=== PATIENT | female | born 1965 | race Caucasian/White ===

== ENCOUNTER → 2016-09-12 | Outpatient (CLI) | payer BC ==
[~2016-09-12] MED LIST: CALCTAB5 PO; ERGO1CAP35 PO; PANT40TA PO; SYN112 PO
== END | disposition home or self-care (01) ==
LOC: C.PAPS 11:33
PROVIDERS: ATTEND Obstetrics & Gynecology
DX: Z12.4 Encounter for screening for malignant neoplasm of cervix (principal)

== ENCOUNTER → 2016-09-17 | Outpatient (CLI) | payer BC ==
[2016-09-17 10:00] LABS: CHOLESTEROL/HDL RATIO 5.8; THYROID STIMULATING HORMONE 0.942 uIu/ml (0.300-4.500)
== END | disposition home or self-care (01) ==
LOC: C.LAB1850 08:08
PROVIDERS: ATTEND Family Medicine
DX: E03.9 Hypothyroidism, unspecified (principal); E78.5 Hyperlipidemia, unspecified

== ENCOUNTER → 2017-09-01 | Outpatient (CLI) | payer BC | END | disposition home or self-care (01) | LOC: C.LAB 08:13 | PROVIDERS: ATTEND Family Medicine | DX: Z11.59 Encounter for screening for other viral diseases (principal); E03.9 Hypothyroidism, unspecified; E78.5 Hyperlipidemia, unspecified ==

== ENCOUNTER 2018-02-13 15:36 | Inpatient (IN) | payer BC, OTHER ==
[~2018-02-13] VITALS: Ht 160 cm; Wt 57.4 kg
[~2018-02-13 15:36] MED LIST changes: +CALC600T9 PO; -CALCTAB5 PO; +CHOL100010 PO; +CITA20TA4 PO; +CYAN1SUB12 PO; +DXM4 PO; -ERGO1CAP35 PO; +IMD2X PO; +LEVO75TA5 PO; +LVNIS60 SQ; +OMEG10007 PO; +ONDA8TAB62 SL; +POLY335025 PO; +PROB1TAB16 PO; +RANI300T2 PO; +RXC5 PO; +SENN-61 PO; -SYN112 PO; +THR10 PO; +VITA1TAB4 PO
[2018-02-13 17:56] LABS: BASO % 0.1 %; BASO ABS # 0.01 K/uL (0-0.2); EOS % 1.4 %; EOS ABS # 0.22 K/uL (0-0.5); HEMATOCRIT 32.9 % (37-47); HEMOGLOBIN 10.6 g/dL (12.0-16.0); IG# 0.05 K/uL (0.00-0.02); LYMPH % 10.1 %; LYMPH ABS # 1.56 K/uL (1.2-3.4); MEAN CELL VOLUME 86.4 fL (80-100); MEAN CORPUSCULAR HEMOGLOBIN 27.8 pg (25-34); MEAN CORPUSCULAR HGB CONC 32.2 g/dl (32-36); MEAN PLATELET VOLUME 9.4 fL (7.4-10.4); MONO % 9.3 %; MONO ABS # 1.44 K/uL (0.11-0.59); NEUT % 78.8 %; NEUT ABS # 12.16 K/uL (1.4-6.5); PLATELET COUNT 264 K/uL (130-400); RED CELL DISTRIBUTION WIDTH CV 13.9 % (11.5-14.5); RED CELL DISTRIBUTION WIDTH SD 43.2 fL (36.4-46.3); WHITE BLOOD COUNT 15.44 K/uL (4.8-10.8)
[2018-02-13 18:00] LABS: ISTAT CREATININE 0.6 mg/dl (0.6-1.3); ISTAT IONIZED CALCIUM 1.2 mmol/l (1.12-1.32); ISTAT POTASSIUM 4.1 mEq/L (3.3-5.0)
[2018-02-13] MEDS ORDERED: PANTOprazole INJ 80 MG in DEXTROSE 5% 100ML IV SCH (18:03)
[2018-02-13 18:05] LABS: INR 1.2 (0.9-1.1); PTT PATIENT 32.9 SECONDS (21.0-31.0)
[2018-02-13] MEDS ORDERED: PANTOprazole INJ 80 MG in DEXTROSE 5% 100ML 100 ML IV SCH (18:15)
--- NOTE | 2018-02-13 18:23 | DIAGNOSTIC IMAGING REPORT ---
ABDOMEN 2VIEW W/PA CHEST RTN CLINICAL HISTORY: Abdominal pain COMPARISON STUDY: Supine abdomen dated 02/07/2018 FINDINGS: The erect chest reveals a right-sided A-Port catheter. There is no free intraperitoneal air. There are bilateral breast implants. There is no focal pulmonary consolidation. There is a metallic stent spanning the esophagogastric junction. Erect and supine views the abdomen reveal no abnormally dilated loops of large or small bowel. There are no transition zones indicate bowel obstruction. Pelvic basin calcifications likely represent phleboliths. IMPRESSION: 1. No evidence of bowel obstruction. No evidence of free air 2. Distal esophageal stent 3. No active disease in the chest Electronically signed by: Meng Toth M.D. 02/13/2018 6:22 PM Dictated Date/Time: 02/13/2018 6:20 PM
[2018-02-13 18:29] LABS: ALBUMIN 3.4 gm/dl (3.4-5.0); CALCIUM 9.6 mg/dl (8.5-10.1); CREATININE 0.66 mg/dl (0.60-1.20); POTASSIUM 4.1 mmol/L (3.5-5.1); TOTAL PROTEIN 7.3 gm/dl (6.4-8.2)
[2018-02-13] MEDS ORDERED: SENN-61 PO (18:47)
[2018-02-13] MEDS ORDERED: POLY335019 PO (18:52)
[2018-02-13] MEDS ORDERED: ONDANSETRON 8MG OD TAB SL PRN (19:00)
[2018-02-13] MEDS ORDERED: MAGNESIUM HYDROXIDE SUSP 30 ML UDC PO PRN (19:00)
[2018-02-13] MEDS ORDERED: ONDANSETRON INJ 2 MG/ML 2 ML VIAL IV PRN (19:00)
[2018-02-13] MEDS ORDERED: ACETAMINOPHEN 325 MG TAB PO PRN (19:00)
--- NOTE | 2018-02-13 19:06 | History and Physical ---
History & Physical Date & Time of Service: Feb 13, 2018 at 18:53 Chief Complaint: No Appetite, Loss Of Energy, Weak Primary Care Physician: Sallie Ramos MD History of Present Illness Source: patient 52 y/o F c/o dark stools. Pt was d/c'd from [facility] on 02/10 after being dx with DVT/PE and esophageal and liver cancer. She was d/c'd on lovenox injections. 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 They stopped at [employer] and pt thought she might be able to eat the non-dairy ice cream there. She is lactose intolerant, so she took a lactose pill prior to eating this. She only had a few bites, however noted loose stools almost immediately that were dark black. This has been ongoing since that time, although she has not had one since this AM and thinks it may have resolved. Denies any episodes of eric bleeding or clots, no bright red blood. Pt states she has upper abd pain that is at its usual. No n/v. Pt denies fever, SOB, chest pain, LE pain or swelling. Pt notes minimal appetite since d/c and mostly just sips and bites of food. She had a port placed on Friday and an esophageal stent placed on without issue. Last dose of lovenox was this AM. It is BID dosing. Past Medical/Surgical History Medical Problems: (1) Bilateral pulmonary embolism (2) Carcinoma of adenoid (3) Esophageal cancer (4) GIB (gastrointestinal bleeding) (5) HX: breast cancer, 2001 with recurrence 2007 (6) Metastatic cancer (7) Pulmonary emboli Thyroid cancer 1990, now hypothyroid Anxiety GERD Family History Family history was reviewed; no changes noted. Father with hx of multiple MN and an aneurysm Social History Smoking Status: Former Smoker (quit x16yrs) Alcohol Use: 3-4 beers a week prior, none x1 month Drug Use: none Marital Status: Housing status: lives with family Immunizations History of Influenza Vaccine: N/A History of Tetanus Vaccine?: Yes History of Pneumococcal: No History of Hepatitis B Vaccine: No Allergies Coded Allergies: Cefazolin (Verified Allergy, Intermediate, RASH, 02/10/18) Lactose (Verified Adverse Reaction, Severe, GI SYMPTOMS, 01/29/18) INTOLERANT OF LACTOSE PRODUCTS Home Medications Scheduled Calcium Carbonate-Vitamin D (Calcium + D), 1 TAB PO QPM Cholecalciferol (Vitamin D), 1 TAB PO QPM Citalopram Hydrobromide (Citalopram Hydrobromide), 20 MG PO DAILY Cyanocobalamin (Vitamin B-12), 1 TAB PO QPM Dexamethasone (Dexamethasone), 4 MG PO DIRECTED Enoxaparin (Enoxaparin Sodium), 60 MG SQ Q12H Fish Oil ([place]-3), 1 CAP PO QPM Levothyroxine Sodium (Levothyroxine Sodium), 75 MCG PO DAILY Pantoprazole (Protonix), 40 MG PO BID Probiotic Product (Probiotic), 1 TAB PO DAILY Ranitidine (Zantac), 300 MG PO HS Senna (Senokot), 2 TAB PO DAILY Vitamin E (Vitamin E), 1 TAB PO QPM Scheduled PRN Chlorpromazine HCl (Chlorpromazine HCl), 10 MG PO Q8H PRN for hiccups Loperamide Hcl (Imodium), 2 MG PO DAILY PRN for Diarrhea Ondansetron Odt (Zofran Odt), 8 MG SL Q6H PRN for Nausea Oxycodone HCl (Oxycodone HCl), 5 MG PO Q6H PRN for Pain Polyethylene Glycol 3350 (Miralax), 17 GM PO DAILY PRN for Constipation Review of Systems Pertinent positives and negatives reviewed in HPI--all others negative Physical Exam Vital Signs Date Time Temp Pulse Resp B/P (MAP) Pulse Ox O2 Delivery O2 Flow Rate FiO2 02/13/18 18:24 74 02/13/18 18:21 36.6 70 18 132/86 97 Room Air 02/13/18 15:44 36.7 97 17 124/90 95 Room Air General Appearance: WD/WN, no apparent distress Head: normocephalic, atraumatic Eyes: normal inspection, sclerae normal Respiratory/Chest: normal breath sounds, no respiratory distress Cardiovascular: regular rate, rhythm, no edema Abdomen/GI: non tender, soft Extremities/Musculoskelatal: no calf tenderness, no pedal edema Neurologic/Psych: alert, normal mood/affect, oriented x 3 Skin: normal color, warm/dry Diagnostics Laboratory Results Results Past 24 Hours Test 02/13/18 17:43 02/13/18 17:47 02/13/18 18:00 Range/Units White Blood Count 15.44 4.8-10.8 K/uL Red Blood Count 3.81 4.2-5.4 M/uL Hemoglobin 10.6 12.0-16.0 g/dL Hematocrit 32.9 37-47 % Mean Corpuscular Volume 86.4 80-100 fL Mean Corpuscular Hemoglobin 27.8 25-34 pg Mean Corpuscular Hemoglobin Concent 32.2 32-36 g/dl Platelet Count 264 130-400 K/uL Mean Platelet Volume 9.4 7.4-10.4 fL Neutrophils (%) (Auto) 78.8 % Lymphocytes (%) (Auto) 10.1 % Monocytes (%) (Auto) 9.3 % Eosinophils (%) (Auto) 1.4 % Basophils (%) (Auto) 0.1 % Neutrophils # (Auto) 12.16 1.4-6.5 K/uL Lymphocytes # (Auto) 1.56 1.2-3.4 K/uL Monocytes # (Auto) 1.44 0.11-0.59 K/uL Eosinophils # (Auto) 0.22 0-0.5 K/uL Basophils # (Auto) 0.01 0-0.2 K/uL RDW Standard Deviation 43.2 36.4-46.3 fL RDW Coefficient of Variation 13.9 11.5-14.5 % Immature Granulocyte % (Auto) 0.3 % Immature Granulocyte # (Auto) 0.05 0.00-0.02 K/uL Prothrombin Time 12.7 9.0-12.0 SECONDS Prothromb Time International Ratio 1.2 0.9-1.1 Activated Partial Thromboplast Time 32.9 21.0-31.0 SECONDS Partial Thromboplastin Ratio 1.3 Sodium Level 128 136-145 mmol/L Potassium Level 4.1 3.5-5.1 mmol/L Chloride Level 92 98-107 mmol/L Carbon Dioxide Level 28 21-32 mmol/L Anion Gap 8.0 15.0 16-25 mmol/L Blood Urea Nitrogen 14 7-18 mg/dl Creatinine 0.66 0.60-1.20 mg/dl Est Creatinine Clear Calc Drug Dose 80.6 ml/min Estimated GFR () 116.1 Estimated GFR (Non- 100.1 BUN/Creatinine Ratio 21.3 10-20 Random Glucose 94 70-99 mg/dl Calcium Level 9.6 8.5-10.1 mg/dl Total Bilirubin 0.4 0.2-1 mg/dl Direct Bilirubin 0.2 0-0.2 mg/dl Aspartate Amino Transf (AST/SGOT) 63 15-37 U/L Alanine Aminotransferase (ALT/SGPT) 76 12-78 U/L Alkaline Phosphatase 253 45-117 U/L Troponin I 0.258 0-0.045 ng/ml Total Protein 7.3 6.4-8.2 gm/dl Albumin 3.4 3.4-5.0 gm/dl Lipase 112 73-393 U/L Bedside Hemoglobin 11.2 12.0-16.0 g/dl Bedside Hematocrit 33 37-47 % Bedside Sodium 129 135-144 mEq/L Bedside Potassium 4.1 3.3-5.0 mEq/L Bedside Chloride 90 101-112 mEq/L Bedside Total CO2 28 24-31 mEq/l Bedside Blood Urea Nitrogen 14 7-18 mg/dl Bedside Creatinine 0.6 0.6-1.3 mg/dl Bedside Glucose (other) 100 70-99 mg/dl Bedside Ionized Calcium (Cesia) 1.20 1.12-1.32 mmol/l Diagnostic Radiology C/AXR: esophageal stent in place, neg for obstruction EKG NSR Impression Assessment and Plan 52 y/o F who was admitted on 02/13 with GIB GIB: heme + in ED Likely upper GIB related to lovenox use Hb 10.6, which is higher than d/c Hb of 9.8 Repeat in AM Protonix BID, IVF, NPO Abd XR notes stent in place, neg for free air GI c/s pending Elevated trop: likely demand ischemia EKG WNL Serials pending DVT/PE: last lovenox AM 02/13 with BID dosing Heme/onc c/s for further options regarding anticoag Vasc c/s for possible IVC Esophageal cancer with liver mets: Port placed 02/11 Plans for chemo to start next week Anxiety: continue home meds Hypothyroid s/p thyroid ca: IV synthroid Other: Full code NPO Holding rx DVT proph given above Resuscitation Status VTE Prophylaxis Will order VTE Prophylaxis: No Reason for no VTE drug order: Contraindicated Reason no Mechanical VTE Order: Contraindicated
[2018-02-13] MEDS ORDERED: MoRPHine SULFATE 4 MG/ML 1 ML CARP\\VIAL IV STA (20:13)
--- NOTE | 2018-02-13 20:43 | EMERGENCY ROOM VISIT NOTE ---
History Report prepared by Jessica: Trey Block Under the Supervision of: Dr. Lexa Villarreal M.D. First contact with patient: 17:05 Chief Complaint: WEAKNESS Stated Complaint: NO APPETITE, LOSS OF ENERGY, WEAK History of Present Illness The patient is a 52 year old female who presents to the Emergency Room with complaints of constant weakness beginning 3 days ago and loss of appetite. She states that when she forces herself to eat, she is able to keep it down and does not feel nauseous, although she takes nausea medication. She reports trying to eat scrambled eggs and bolton this morning, and lost her appetite within a few bites. She states that when she climbs stairs, she has to take breaks. She reports that she was diagnosed with esophageal cancer, and on January [address] scan showed that it had spread to the liver, and also showed blood clots in the calves and lungs. She states she was admitted that night. She states that she was given a liver biopsy, A port, and stent in her throat, and she states that swallowing is not an issue for her. The patient also notes pain in her back and abdomen that has been bothering her since those were performed. The patient reports black stools beginning three days ago. She states that on that day, she had part of a meal, and then had black stool when she got home. She notes that today she had 4 bowel movements. The patient denies urinary symptoms or fever. She state that she is on Lovenox. She notes that she is lactose intolerant, but has not had anything with lactose for the past 2 days, although she notes that she had some ice cream a couple days ago. She also notes that she had 1/2 of a Boost this morning and yesterday, and states that she tried a [place] instant breakfast with almond milk that she eats half at a time. The patient reports that she will be starting chemotherapy next week. Source of History: patient Onset: 3 days ago Position: other (global weakness and loss of appetite) Quality: other (weakness, loss of appetite) Timing: constant Modifying Factors (Worsening): exertion Associated Symptoms: + melena, No fevers, No urinary symptoms Review of Systems See HPI for pertinent positives & negatives. A total of 10 systems reviewed and were otherwise negative. Past Medical & Surgical Medical Problems: (1) Carcinoma of adenoid (2) Esophageal cancer (3) GIB (gastrointestinal bleeding) (4) HX: breast cancer (5) Pulmonary emboli Family History Patient reports no known family medical history. Social History Smoking Status: Former Smoker Drug Use: none Marital Status: Housing Status: lives with significant other Current/Historical Medications Scheduled Calcium Carbonate-Vitamin D (Calcium + D), 1 TAB PO QPM Cholecalciferol (Vitamin D), 1 TAB PO QPM Citalopram Hydrobromide (Citalopram Hydrobromide), 20 MG PO DAILY Cyanocobalamin (Vitamin B-12), 1 TAB PO QPM Dexamethasone (Dexamethasone), 4 MG PO DIRECTED Enoxaparin (Enoxaparin Sodium), 60 MG SQ Q12H Fish Oil ([place]elling-3), 1 CAP PO QPM Levothyroxine Sodium (Levothyroxine Sodium), 75 MCG PO DAILY Pantoprazole (Protonix), 40 MG PO BID Probiotic Product (Probiotic), 1 TAB PO DAILY Ranitidine (Zantac), 300 MG PO HS Senna (Senokot), 2 TAB PO DAILY Vitamin E (Vitamin E), 1 TAB PO QPM Scheduled PRN Chlorpromazine HCl (Chlorpromazine HCl), 10 MG PO Q8H PRN for hiccups Loperamide Hcl (Imodium), 2 MG PO DAILY PRN for Diarrhea Ondansetron Odt (Zofran Odt), 8 MG SL Q6H PRN for Nausea Oxycodone HCl (Oxycodone HCl), 5 MG PO Q6H PRN for Pain Polyethylene Glycol 3350 (Miralax), 17 GM PO DAILY PRN for Constipation Allergies Coded Allergies: Cefazolin (Verified Allergy, Intermediate, RASH, 02/10/18) Lactose (Verified Adverse Reaction, Severe, GI SYMPTOMS, 01/29/18) INTOLERANT OF LACTOSE PRODUCTS Physical Exam Vital Signs Date Time Temp Pulse Resp B/P (MAP) Pulse Ox O2 Delivery O2 Flow Rate FiO2 02/13/18 20:25 78 18 141/94 99 02/13/18 19:57 78 18 141/94 99 Room Air 02/13/18 18:24 74 02/13/18 18:21 36.6 70 18 132/86 97 Room Air 02/13/18 15:44 36.7 97 17 124/90 95 Room Air Physical Exam Constitutional: Vital signs reviewed. Eyes: Pupils are equal round reactive to light. Conjunctiva are noninjected. ENT: Pharynx is clear without erythema or exudate. Mucous membranes are slightly dry. Neck supple without meningeal signs. Respiratory: Clear to auscultation bilaterally. Breath sounds are equal bilaterally. Cardiovascular: Regular rate and rhythm. No rubs or gallops. GI: Soft, nondistended and nontender. Bowel sounds are present. Musculoskeletal: No peripheral edema. No lower extremity tenderness. Integumentary: No cyanosis. Neurological: The patient is awake and alert. No focal deficits. Psychiatric: Normal affect. Rectal: Guaiac positive, dark brown stool, no gross blood. Medical Decision & Procedures ER Provider Diagnostic Interpretation: Radiology results as stated below per my review and the radiologist's interpretation: Patient Name: KASSANDRA CHRISTIE Unit Number: [id number] Dictated: 02/13/181819 Transcribed: 02/13/181819 ARG Printed Date/Time: [~ rep prt dt]/[~ rep prt tm] [~ rep ct labl] - [~ rep ct ivnm] [facility] [place] [address] Dictated: 02/13/181819 Transcribed: 02/13/181819 ARG Printed Date/Time: [~ rep prt dt]/[~ rep prt tm] [~ rep ct labl] - [~ rep ct ivnm] Patient: KASSANDRA CHRISTIE Address1: [address] [place] [address] Rec: [id number] Address2: Acct ID: [id number] [facility] Zip: [place] [address] Date: 1965 Sex: F Room/Bed: Ref Phy: Sallie Ramos MD SC: PANCHITO Att Phy: Report #: [id number] Yancy Phy: Sallie Ramos MD Test: ABCX Admit Phy: Extract Mixer: [place] Interpreting Phy: Meng Toth M.D. Diagnosis: NO APPETITE, LOSS OF ENERGY, WEAK Ordering Phy: Lexa Villarreal MD Service Date: 02/13/18 Admit Date: 02/13/18 MNE: [id number] CONF: DICTATED BY: Meng Toth M.D.]] CC: Lexa Villarreal M.D. Sallie Ramos MD Endcc: [~ rep ct add3]] ABDOMEN 2VIEW W/PA CHEST RTN CLINICAL HISTORY: Abdominal pain COMPARISON STUDY: Supine abdomen dated 02/07/2018 FINDINGS: The erect chest reveals a right-sided A-Port catheter. There is no free intraperitoneal air. There are bilateral breast implants. There is no focal pulmonary consolidation. There is a metallic stent spanning the esophagogastric junction. Erect and supine views the abdomen reveal no abnormally dilated loops of large or small bowel. There are no transition zones indicate bowel obstruction. Pelvic basin calcifications likely represent phleboliths. IMPRESSION: 1. No evidence of bowel obstruction. No evidence of free air 2. Distal esophageal stent 3. No active disease in the chest Electronically signed by: Meng Toth M.D. 02/13/2018 6:22 PM Dictated Date/Time: 02/13/2018 6:20 PM The status of this report is Signed. Draft = Not yet reviewed or approved by Radiologist. Signed = Reviewed and approved by Radiologist. <AttendingPhy></AttendingPhy> <FamilyPhy>Sallie Ramos MD</FamilyPhy> < PrimaryPhy>Sallie Ramos MD</PrimaryPhy> <UnitNumber>[id number]</UnitNumber > <VisitNumber>[id number]</VisitNumber> <PatientName>KASSANDRA CHRISTIE</ PatientName> <DateOfBirth>1965</DateOfBirth> <Location>C.EDB</Location> < ServiceDate>02/13/18</ServiceDate> <MNE>ESINDI</MNE> <OrderingPhy>Lexa Villarreal MD</OrderingPhy> <OrderingPhyMNE>f rep ord dr schmitt</OrderingPhyMNE> < DictatingPhyMNE>f rep dict dr schmitt</DictatingPhyMNE> <CCListMNE>f rep ct mne</ CCListMNE> <AdmittingPhyMNE>f pt admit dr schmitt</AdmittingPhyMNE> <AttendingPhyMNE >f pt attend dr schmitt</AttendingPhyMNE> <ConsultingPhyMNE>f pt consult dr schmitt</ConsultingPhyMNE> <FamilyPhyMNE>f pt fam dr schmitt</FamilyPhyMNE> <OtherPhyMNE>f pt other dr schmitt</OtherPhyMNE> < PrimaryPhyMNE>f pt prim care dr schmitt</PrimaryPhyMNE> <ReferringPhyMNE>f pt referring dr schmitt</ReferringPhyMNE> Laboratory Results 02/13/18 17:43 Red Blood Count 3.81, Mean Corpuscular Volume 86.4, Mean Corpuscular Hemoglobin 27.8, Mean Corpuscular Hemoglobin Concent 32.2, Mean Platelet Volume 9.4, Neutrophils (%) (Auto) 78.8, Lymphocytes (%) (Auto) 10.1, Monocytes (%) (Auto) 9.3, Eosinophils (%) (Auto) 1.4, Basophils (%) (Auto) 0.1, Neutrophils # (Auto) 12.16, Lymphocytes # (Auto) 1.56, Monocytes # (Auto) 1.44, Eosinophils # (Auto) 0.22, Basophils # (Auto) 0.01 02/13/18 17:43 Test 02/13/18 17:43 02/13/18 17:47 02/13/18 18:00 White Blood Count 15.44 K/uL (4.8-10.8) Red Blood Count 3.81 M/uL (4.2-5.4) Hemoglobin 10.6 g/dL (12.0-16.0) Hematocrit 32.9 % (37-47) Mean Corpuscular Volume 86.4 fL (80-100) Mean Corpuscular Hemoglobin 27.8 pg (25-34) Mean Corpuscular Hemoglobin Concent 32.2 g/dl (32-36) Platelet Count 264 K/uL (130-400) Mean Platelet Volume 9.4 fL (7.4-10.4) Neutrophils (%) (Auto) 78.8 % Lymphocytes (%) (Auto) 10.1 % Monocytes (%) (Auto) 9.3 % Eosinophils (%) (Auto) 1.4 % Basophils (%) (Auto) 0.1 % Neutrophils # (Auto) 12.16 K/uL (1.4-6.5) Lymphocytes # (Auto) 1.56 K/uL (1.2-3.4) Monocytes # (Auto) 1.44 K/uL (0.11-0.59) Eosinophils # (Auto) 0.22 K/uL (0-0.5) Basophils # (Auto) 0.01 K/uL (0-0.2) RDW Standard Deviation 43.2 fL (36.4-46.3) RDW Coefficient of Variation 13.9 % (11.5-14.5) Immature Granulocyte % (Auto) 0.3 % Immature Granulocyte # (Auto) 0.05 K/uL (0.00-0.02) Prothrombin Time 12.7 SECONDS (9.0-12.0) Prothromb Time International Ratio 1.2 (0.9-1.1) Activated Partial Thromboplast Time 32.9 SECONDS (21.0-31.0) Partial Thromboplastin Ratio 1.3 Est Creatinine Clear Calc Drug Dose 80.6 ml/min Estimated GFR () 116.1 Estimated GFR (Non- 100.1 BUN/Creatinine Ratio 21.3 (10-20) Calcium Level 9.6 mg/dl (8.5-10.1) Total Bilirubin 0.4 mg/dl (0.2-1) Direct Bilirubin 0.2 mg/dl (0-0.2) Aspartate Amino Transf (AST/SGOT) 63 U/L (15-37) Alanine Aminotransferase (ALT/SGPT) 76 U/L (12-78) Alkaline Phosphatase 253 U/L (45-117) Troponin I 0.258 ng/ml (0-0.045) Total Protein 7.3 gm/dl (6.4-8.2) Albumin 3.4 gm/dl (3.4-5.0) Lipase 112 U/L (73-393) Bedside Hemoglobin 11.2 g/dl (12.0-16.0) Bedside Hematocrit 33 % (37-47) Bedside Sodium 129 mEq/L (135-144) Bedside Potassium 4.1 mEq/L (3.3-5.0) Bedside Chloride 90 mEq/L (101-112) Bedside Total CO2 28 mEq/l (24-31) Anion Gap 15.0 mmol/L (16-25) Bedside Blood Urea Nitrogen 14 mg/dl (7-18) Bedside Creatinine 0.6 mg/dl (0.6-1.3) Bedside Glucose (other) 100 mg/dl (70-99) Bedside Ionized Calcium (Cesia) 1.20 mmol/l (1.12-1.32) Urine Color DK YELLOW Urine Appearance CLEAR (CLEAR) Urine pH 5.5 (4.5-7.5) Urine Specific [place] 1.026 (1.000-1.030) Urine Protein TRACE (NEG) Urine Glucose (UA) NEG (NEG) Urine Ketones TRACE (NEG) Urine Occult Blood TRACE (NEG) Urine Nitrite NEG (NEG) Urine Bilirubin NEG (NEG) Urine Urobilinogen NEG (NEG) Urine Leukocyte Esterase SMALL (NEG) Urine WBC (Auto) 5-10 /hpf (0-5) Urine RBC (Auto) 0-4 /hpf (0-4) Urine Hyaline Casts (Auto) 5-10 /lpf (0-5) Urine Epithelial Cells (Auto) >30 /lpf (0-5) Urine Bacteria (Auto) NEG (NEG) Urine Crystals CALCIUM OXALATE (NONE Urine Yeast (Auto) (NONE PRSENT) Laboratory results as reviewed by me. Medications Administered Medications (Trade) Dose Ordered Sig/Segundo Route Start Time Stop Time Status Last Admin Dose Admin Pantoprazole Sodium 80 mg/ Dextrose 120 ml @ 480 mls/hr TODAY@180 IV 02/13/18 18:03 02/13/18 20:00 DC 02/13/18 19:55 480 MLS/HR Morphine Sulfate (MoRPHine SULFATE INJ) 4 mg NOW STAT IV 02/13/18 20:13 02/13/18 20:14 DC 02/13/18 20:18 4 MG ECG Per My Interpretation Indication: weakness Rhythm: normal sinus Findings: other (no ST elevation or PVCs) ED Course 1708: The patient was evaluated in room B8. A complete history and physical exam was performed. 175: I discussed i-Stat results with the patient. 1802: Ordered Pantoprazole sodium 80 mg/Dextrose 120 ml @ 480 mls/hr IV 1804: I spoke with Dr. Elliott - [facility] Hospitalist. She will reevaluate the patient for admission. 1838: The patient's troponin is 2.5. Dr. Elliott is in the room, and I gave her the patient's EKG. Medical Decision This is a 52-year-old female presents with black stools and generalized weakness. Differential diagnosis includes GI bleed, anemia, dehydration, malnutrition, metabolic derangement. I did perform a limited focused review of portions of the patient's old chart on the electronic medical record. The patient was admitted to the hospital on January 29. She has bilateral pulmonary emboli and metastatic esophageal cancer. Her last hemoglobin was 9.8 on the . I did evaluate the patient as noted above. Patient is presenting with generalized weakness for the past several days. She has also noted black stools and had 4 episodes today. She is on Lovenox for bilateral PE and DVT. IV access was established. The patient was placed on a continuous monitor tech. I did order and personally review the patient's 12-lead EKG and chest/ abdominal x-ray as described above. X-ray does not show any evidence of free air or obstruction. Twelve-lead EKG does not show any acute ischemic changes. I did order and review the patient's blood work as noted in the electronic medical record. Her hemoglobin has increased to 11.2 on i-STAT labs. Her sodium dropped to 129. A type and screen was obtained. Given her increased hemoglobin I did not feel transfusion was currently indicated. I did treat patient with Protonix IV. I did discuss the case with the hospitalist and ed case manager. I did discuss the test results with the patient. Later lab results demonstrated an elevation of her troponin. I did inform the hospitalist who will determine whether she requires emergent transfusion. Medication Reconcilliation Current Medication List: was personally reviewed by me Blood Pressure Screening Patient's blood pressure: Elevated blood pressure Blood pressure disposition: Referred to PCP Consults Time Called: 1800 Consulting Physician: Dr. Earl Braga [facility] Hospitalist Returned Call: [address] Earl Braga [facility] Hospitalist. She will reevaluate the patient for admission. Impression Primary Impression: Upper GI bleed Additional Impressions: Anticoagulated Anemia Generalized weakness Hyponatremia Elevated troponin Scribe Attestation The scribe's documentation has been prepared under my direct and personally reviewed by me in its entirety. I confirm that the note above accurately reflects all work, treatment, procedures, and medical decision making performed by me. Departure Information Dispostion Being Evaluated By Hospitalist Referrals Sallie Ramos MD (PCP) Patient Instructions [facility] Problem Qualifiers Additional Impressions: Anemia Anemia type: unspecified type Qualified Codes: D64.9 - Anemia, unspecified
[2018-02-13 20:53] VITALS: BP 87/61; PULSE 75; TEMP 36.4; O2SAT 94; BMI 22.6
[2018-02-13] MEDS: PANTOprazole INJ 40 MG in SYRINGE 0 ML IV SCH (21:21)
[2018-02-13] MEDS: CHLORPROMAZINE HCL 10 MG TAB PO PRN (21:22)
[2018-02-13] MEDS: D5NSS + 20MEQ KCL 1,000 ML IV SCH (21:22)
[2018-02-13 23:45] VITALS: BP 119/78; PULSE 77; TEMP 36.5; O2SAT 96
[2018-02-14] VITALS (7 sets, daily range): BP systolic 120–151; BP diastolic 83–92; PULSE 75–92; TEMP 36.3–36.8; O2SAT 96–97; Ht 160 cm; Wt 57.4 kg
[2018-02-14] MEDS: MoRPHine SULFATE 2 MG/ML CARP IV PRN ×2 (00:15→05:02)
[2018-02-14] MEDS: D5NSS + 20MEQ KCL 1,000 ML IV SCH ×2 (05:08→13:53)
[2018-02-14] MEDS ORDERED: NURSING VERBAL MED ORDER ONE (06:00)
[2018-02-14] MEDS: CHLORPROMAZINE HCL 10 MG TAB PO PRN (07:36)
[2018-02-14 07:53] LABS: HEMATOCRIT 33.6 % (37-47); HEMOGLOBIN 10.6 g/dL (12.0-16.0); MEAN CELL VOLUME 87.5 fL (80-100); MEAN CORPUSCULAR HEMOGLOBIN 27.6 pg (25-34); MEAN CORPUSCULAR HGB CONC 31.5 g/dl (32-36); MEAN PLATELET VOLUME 9.5 fL (7.4-10.4); PLATELET COUNT 211 K/uL (130-400); RED CELL DISTRIBUTION WIDTH CV 13.8 % (11.5-14.5); WHITE BLOOD COUNT 13.92 K/uL (4.8-10.8)
[2018-02-14 08:26] LABS: CALCIUM 8.4 mg/dl (8.5-10.1); CREATININE 0.71 mg/dl (0.60-1.20); POTASSIUM 4.1 mmol/L (3.5-5.1)
[2018-02-14] MEDS: PANTOprazole INJ 40 MG in SYRINGE 0 ML IV SCH (08:49)
[2018-02-14] MEDS ORDERED: CITALOPRAM 20 MG TAB PO SCH (09:00)
[2018-02-14] MEDS ORDERED: LEVOTHYROXINE SODIUM INJ 37.5 MCG in SYRINGE 0 ML IV SCH (09:00)
[2018-02-14] MEDS: MoRPHine SULFATE 4 MG/ML 1 ML CARP\\VIAL IV PRN ×2 (11:07→15:52)
--- NOTE | 2018-02-14 13:07 | Oncology Consultation ---
Oncology/Heme Consultation Date of Consultation: Feb 14, 2018. Attending Physician: Lauryn Plascencia MD Reason for Consultation: Metastatic esophageal cancer DVT/PE GI bleed History of Present Illness Ms. Chavez is a 52 year old woman with a history of multiple cancers, most recent a metastatic HER2 positive esophageal adenocarcinoma. She has had an esophageal stent placed and we are planning to start chemotherapy this week. She is also on full-dose anticoagulation for a recent DVT/PE. She called yesterday afternoon complaining of dizziness, weakness, and worsened melena, so I directed her to the ER. Here, she was found to have a stable to even slightly improved hemoglobin. She also had some electrolyte issues and has been hydrated. She feels much better today. Past Medical/Surgical History Medical Problems: (1) Anemia Status: Acute (2) Anticoagulated Status: Acute (3) Elevated troponin Status: Acute (4) Generalized weakness Status: Acute (5) Hyponatremia Status: Acute (6) Upper GI bleed Status: Acute Family History Patient reports no known family medical history. Social History Smoking Status: Former Smoker Alcohol Use: 3-4 beers a week prior, none x1 month Drug Use: none Marital Status: Housing Status: lives with significant other Allergies Coded Allergies: Cefazolin (Verified Allergy, Intermediate, RASH, 02/10/18) Lactose (Verified Adverse Reaction, Severe, GI SYMPTOMS, 01/29/18) INTOLERANT OF LACTOSE PRODUCTS Home Medications Scheduled Calcium Carbonate-Vitamin D (Calcium + D), 1 TAB PO QPM Cholecalciferol (Vitamin D), 1 TAB PO QPM Citalopram Hydrobromide (Citalopram Hydrobromide), 20 MG PO DAILY Cyanocobalamin (Vitamin B-12), 1 TAB PO QPM Dexamethasone (Dexamethasone), 4 MG PO DIRECTED Enoxaparin (Enoxaparin Sodium), 60 MG SQ Q12H Fish Oil ([place]-3), 1 CAP PO QPM Levothyroxine Sodium (Levothyroxine Sodium), 75 MCG PO DAILY Pantoprazole (Protonix), 40 MG PO BID Probiotic Product (Probiotic), 1 TAB PO DAILY Ranitidine (Zantac), 300 MG PO HS Senna (Senokot), 2 TAB PO DAILY Vitamin E (Vitamin E), 1 TAB PO QPM Scheduled PRN Chlorpromazine HCl (Chlorpromazine HCl), 10 MG PO Q8H PRN for hiccups Loperamide Hcl (Imodium), 2 MG PO DAILY PRN for Diarrhea Ondansetron Odt (Zofran Odt), 8 MG SL Q6H PRN for Nausea Oxycodone HCl (Oxycodone HCl), 5 MG PO Q6H PRN for Pain Polyethylene Glycol 3350 (Miralax), 17 GM PO DAILY PRN for Constipation Current Inpatient Medications Current Inpatient Medications Medications (Trade) Dose Ordered Sig/Segundo Route Start Time Stop Time Status Last Admin Dose Admin Potassium Chloride/Dextrose/ Sod Cl 1,000 ml @ 125 mls/hr Q8H IV 02/13/18 21:30 03/15/18 21:29 02/14/18 05:08 125 MLS/HR Acetaminophen (Tylenol Tab) 650 mg Q4H PRN PO 02/13/18 19:00 03/15/18 18:59 Magnesium Hydroxide (Milk Of Magnesia Susp) 30 ml Q12H PRN PO 02/13/18 19:00 03/15/18 18:59 Ondansetron HCl (Zofran Inj) 4 mg Q6H PRN IV 02/13/18 19:00 03/15/18 18:59 Chlorpromazine HCl (Thorazine Tab) 10 mg Q8H PRN PO 02/13/18 19:00 03/15/18 18:59 02/14/18 07:36 10 MG Citalopram Hydrobromide (celeXA TAB) 20 mg DAILY PO 02/14/18 09:00 03/16/18 08:59 02/14/18 07:36 20 MG Ondansetron HCl (Zofran Odt) 8 mg Q6H PRN SL 02/13/18 19:00 03/15/18 18:59 Levothyroxine Sodium 37.5 mcg/ Syringe 1.875 ml @ 2 mls/min DAILY@09 IV 02/14/18 09:00 03/16/18 08:59 02/14/18 08:49 2 MLS/MIN Pantoprazole Sodium 40 mg/ Syringe 10 ml @ 5 mls/min BID@0900,2100 IV 02/13/18 21:30 03/15/18 21:29 02/14/18 08:49 5 MLS/MIN Heparin Sodium (Porcine) (Heparin 100 Unit/ml 5ml Flush) 5 ml PRN PRN IV 02/14/18 02:00 03/16/18 01:59 Morphine Sulfate (MoRPHine SULFATE INJ) 4 mg Q4H PRN IV 02/14/18 06:15 02/28/18 06:14 02/14/18 11:07 4 MG Review of Systems Constitutional: + weakness, + fatigue, No fever Respiratory: No cough, No shortness of breath Cardiovascular: No chest pain Abdomen: + GI bleeding, No pain, No nausea Musculoskeletal: No joint pain, No muscle pain Genitourinary - Female: No dysuria Hematologic / Lymphatic: + abnormal bleeding/bruising Physical Exam Date Time Temp Pulse Resp B/P (MAP) Pulse Ox O2 Delivery O2 Flow Rate FiO2 02/14/18 11:00 36.8 85 16 136/92 (107) 97 Room Air 02/14/18 08:00 Room Air 02/14/18 07:33 36.7 77 18 144/89 (107) 96 Room Air 02/14/18 07:00 36.8 75 18 142/92 (109) 96 Room Air 02/14/18 03:01 36.3 76 18 120/83 (95) 96 Room Air 02/14/18 00:00 Room Air 02/13/18 23:45 36.5 77 18 119/78 (92) 96 Room Air 02/13/18 20:53 36.4 75 18 87/61 94 Room Air 02/13/18 20:25 78 18 141/94 99 02/13/18 19:57 78 18 141/94 99 Room Air 02/13/18 18:24 74 02/13/18 18:21 36.6 70 18 132/86 97 Room Air 02/13/18 15:44 36.7 97 17 124/90 95 Room Air General Appearance: WD/WN, no apparent distress ENT: pharynx normal Respiratory/Chest: lungs clear Cardiovascular: regular rate, rhythm Abdomen/GI: non tender, soft Extremities/Musculoskelatal: no pedal edema Neurologic/Psych: alert, oriented x 3 Laboratory Results Last 24 Hours Test 02/13/18 17:43 02/13/18 17:47 02/13/18 18:00 7/28/18 00:11 White Blood Count 15.44 K/uL Red Blood Count 3.81 M/uL Hemoglobin 10.6 g/dL Hematocrit 32.9 % Mean Corpuscular Volume 86.4 fL Mean Corpuscular Hemoglobin 27.8 pg Mean Corpuscular Hemoglobin Concent 32.2 g/dl Platelet Count 264 K/uL Mean Platelet Volume 9.4 fL Neutrophils (%) (Auto) 78.8 % Lymphocytes (%) (Auto) 10.1 % Monocytes (%) (Auto) 9.3 % Eosinophils (%) (Auto) 1.4 % Basophils (%) (Auto) 0.1 % Neutrophils # (Auto) 12.16 K/uL Lymphocytes # (Auto) 1.56 K/uL Monocytes # (Auto) 1.44 K/uL Eosinophils # (Auto) 0.22 K/uL Basophils # (Auto) 0.01 K/uL RDW Standard Deviation 43.2 fL RDW Coefficient of Variation 13.9 % Immature Granulocyte % (Auto) 0.3 % Immature Granulocyte # (Auto) 0.05 K/uL Prothrombin Time 12.7 SECONDS Prothromb Time International Ratio 1.2 Activated Partial Thromboplast Time 32.9 SECONDS Partial Thromboplastin Ratio 1.3 Sodium Level 128 mmol/L Potassium Level 4.1 mmol/L Chloride Level 92 mmol/L Carbon Dioxide Level 28 mmol/L Anion Gap 8.0 mmol/L 15.0 mmol/L Blood Urea Nitrogen 14 mg/dl Creatinine 0.66 mg/dl Est Creatinine Clear Calc Drug Dose 80.6 ml/min Estimated GFR () 116.1 Estimated GFR (Non- 100.1 BUN/Creatinine Ratio 21.3 Random Glucose 94 mg/dl Calcium Level 9.6 mg/dl Total Bilirubin 0.4 mg/dl Direct Bilirubin 0.2 mg/dl Aspartate Amino Transf (AST/SGOT) 63 U/L Alanine Aminotransferase (ALT/SGPT) 76 U/L Alkaline Phosphatase 253 U/L Troponin I 0.258 ng/ml 0.314 ng/ml Total Protein 7.3 gm/dl Albumin 3.4 gm/dl Lipase 112 U/L Bedside Hemoglobin 11.2 g/dl Bedside Hematocrit 33 % Bedside Sodium 129 mEq/L Bedside Potassium 4.1 mEq/L Bedside Chloride 90 mEq/L Bedside Total CO2 28 mEq/l Bedside Blood Urea Nitrogen 14 mg/dl Bedside Creatinine 0.6 mg/dl Bedside Glucose (other) 100 mg/dl Bedside Ionized Calcium ([place]) 1.20 mmol/l Urine Color DK YELLOW Urine Appearance CLEAR Urine pH 5.5 Urine Specific [place] 1.026 Urine Protein TRACE Urine Glucose (UA) NEG Urine Ketones TRACE Urine Occult Blood TRACE Urine Nitrite NEG Urine Bilirubin NEG Urine Urobilinogen NEG Urine Leukocyte Esterase SMALL Urine WBC (Auto) 5-10 /hpf Urine RBC (Auto) 0-4 /hpf Urine Hyaline Casts (Auto) 5-10 /lpf Urine Epithelial Cells (Auto) >30 /lpf Urine Bacteria (Auto) NEG Urine Crystals CALCIUM OXALATE Urine Yeast (Auto) Test 02/14/18 07:25 02/14/18 12:46 White Blood Count 13.92 K/uL Red Blood Count 3.84 M/uL Hemoglobin 10.6 g/dL Hematocrit 33.6 % Mean Corpuscular Volume 87.5 fL Mean Corpuscular Hemoglobin 27.6 pg Mean Corpuscular Hemoglobin Concent 31.5 g/dl RDW Standard Deviation 44.0 fL RDW Coefficient of Variation 13.8 % Platelet Count 211 K/uL Mean Platelet Volume 9.5 fL Sodium Level 130 mmol/L Potassium Level 4.1 mmol/L Chloride Level 96 mmol/L Carbon Dioxide Level 29 mmol/L Anion Gap 5.0 mmol/L Blood Urea Nitrogen 10 mg/dl Creatinine 0.71 mg/dl Est Creatinine Clear Calc Drug Dose 74.9 ml/min Estimated GFR () 111.9 Estimated GFR (Non- 96.6 BUN/Creatinine Ratio 13.3 Random Glucose 128 mg/dl Calcium Level 8.4 mg/dl Troponin I 0.352 ng/ml Assessment & Plan Ms. Chavez has ongoing oozing from her esophageal mass, which is the likely source of her melena. We need to continue therapeutic-dose anticoagulation due to her recent DVT/PE. One option might be to to try the 1.5 mg/kg daily dose of Lovenox instead of the 1 mg/kg BID. It has been shown to be effective and may cause less bleeding. Her hemoglobin is stable, so this does not appear to be a severe bleed. The ultimate solution to this problem is getting started on treatment and we are planning that this week. I do not think an IVC filter would be helpful in this context. Since she has PEs already, a filter would not prevent her from requiring full dose anticoagulation. I will see her in the clinic this week to begin her chemo.
[2018-02-14] MEDS ORDERED: ENOXAPARIN 1.5 MG/KG SQ SCH (13:15)
[2018-02-14] MEDS ORDERED: ENOXAPARIN 100 MG/1ML SYR SQ SCH (14:00)
--- NOTE | 2018-02-14 14:18 | GASTROINTESTINAL CONSULTATION ---
DATE OF CONSULTATION: 02/14/2018 PATIENT'S AGE: 52. SEX: Female. RACE: . ATTENDING PHYSICIAN: Dr. Elliott. CONSULTING PHYSICIAN: Dr. Borja. REASON FOR CONSULTATION: GI bleed. HISTORY OF PRESENT ILLNESS: Vee Chavez is a 52-year-old female who underwent an upper endoscopy on 01/27 which showed evidence of medium-sized ulcerating mass within the lower third of the esophagus, small hiatal hernia and multiple polyps in the stomach. Biopsies returned showing invasive adenocarcinoma. The patient subsequently underwent an EGD with esophageal stent placement on 02/06 as she was having difficulty eating. She did have improved symptoms following esophageal stent placement and she remained on PPI therapy as well as H2 receptor antagonist therapy. She returned to the Department of Emergency Medicine on 02/13 with complaints of no appetite, loss of energy and weakness. Her H and H on admission was noted to be 10.6 and 32.9, of note on discharge from the hospital on 02/10, her hemoglobin was noted to be 9.8. She did undergo a chest and abdomen x-ray as well and it showed no evidence of bowel obstruction and the distal esophageal stent was in place and there was no active disease in her chest. She was subsequently admitted. She was placed on Protonix IV b.i.d., and at the time that I saw her this morning, she does state that her symptoms have improved. She does not feel lightheaded or dizzy. She denies any abdominal pain, fevers, chills, nausea, vomiting, hematemesis, melena or hematochezia. She states that overall she is just having a difficult time with p.o. intake. She states that she is only having soft foods right now. She has not tried any solid foods and she does note that she becomes nauseous after eating. She does have a plan in place with Dr. Storey to undergo chemotherapy starting this week and will follow up with him as an outpatient. She denied any further complaints at this time. PAST MEDICAL HISTORY: Includes esophageal adenocarcinoma with liver metastases, bilateral PE, history of GI bleed, history of breast cancer, anxiety, GERD. PAST SURGICAL HISTORY: Includes bilateral mastectomy. ALLERGIES: TO LACTOSE. MEDICATIONS AT PRESENT: Celexa 20 mg daily, levothyroxine 37.5 mcg IV daily, morphine 4 mg IV q. 4 p.r.n. pain, Protonix 40 mg IV b.i.d., Tylenol 650 mg p.o. q. 4 p.r.n. pain or fever, milk of magnesia 30 mL p.o. q. 12 p.r.n. constipation, Zofran 4 mg IV q. 6 p.r.n. nausea, Thorazine 10 mg p.o. q. 8 p.r.n. hiccups, Zofran 8 mg sublingual every 6 hours p.r.n. nausea. SOCIAL HISTORY: She is accompanied to the hospital by her . No tobacco, alcohol or illicit drug use. FAMILY HISTORY: Negative for GI malignancy or inflammatory bowel disease. REVIEW OF SYSTEMS: Negative x12 system review other than pertinent positives listed in the HPI. PHYSICAL EXAMINATION: VITAL SIGNS: Temp 36.8, pulse 85, respirations 16, blood pressure 136/92, pulse ox 97% on room air. GENERAL: She is awake, cooperative, chronic ill appearing, in no acute distress. HEAD: Normocephalic, atraumatic. EYES: Pupils equal, round. Extraocular muscles are intact. ENT: External evaluation of the ears and nose are normal. Oropharynx is clear. NECK: Soft, supple. No JVD or lymphadenopathy. CHEST: Clear to auscultation bilaterally. CARDIOVASCULAR SYSTEM: Regular rate and rhythm. ABDOMEN: Soft, nontender, nondistended. Positive bowel sounds. EXTREMITIES: No clubbing, cyanosis, or edema. SKIN: Soft, pink. Good turgor. LABORATORY STUDIES: Reviewed in the HPI. RADIOGRAPHIC STUDIES: Reviewed in the HPI. IMPRESSION: A 52-year-old female with widely metastatic adenocarcinoma of the esophagus with esophageal stent placement and difficulty eating. PLAN: At the present time, I encouraged the patient to supplement her diet with Boost. I encouraged her to advance her diet to soft as soon as possible. She will remain on PPI and H2 receptor antagonist therapy. I would encourage her to drink high caloric containing beverages such as milk shakes and she will follow up with Dr. Storey this week regarding chemotherapy. I did discuss the case in detail with Dr. Plascencia. There are no plans for any invasive GI testing at this time. Once again, thanks for allowing me to participate in the care of this patient. If you have any further questions, please do not hesitate in contacting me.
[2018-02-14] MEDS ORDERED: LVNIS60 SQ ×2 (18:15→21:06)
--- NOTE | 2018-02-14 18:18 | Discharge Instructions ---
Discharge Instructions Date of Service Feb 14, 2018. Admission Reason for Admission: Gib (Gastrointestinal Bleeding) Discharge Discharge Diagnosis / Problem: GI bleeding Discharge Goals Goal(s): Improve disease control, Diagnostic testing, Therapeutic intervention Activity Recommendations Activity Limitations: as noted below Exercise/Sports Limitations: gradually increase as tolerated Shower/Bathe: no limitations . Instructions / Follow-Up Instructions / Follow-Up You were admitted for GI bleeding most likely coming from your esophageal tumor. It was decided to lower the dose of your Lovenox injections to 90 mg once daily. Your blood count remained stable and he did not lose a lot of blood. You were also found to have a mild elevation in the blood test looking for damage of the heart called a "troponin." This was repeated several times and remained stable and you did not have a heart attack. This is most likely from a little strain on the heart do to your recent illness and the blood clots in your lungs. Please follow-up with your family doctor as planned for Friday, and with oncology as planned for next . Current Hospital Diet Patient's current hospital diet: AHA Diet (Heart Healthy) Discharge Diet Recommended Diet: Regular Diet (Soft foods preferred) Procedures Procedures Performed: Chest/abdomen x-ray Pending Studies Studies pending at discharge: no Laboratory Results Last 24 Hours Test 02/14/18 00:11 02/14/18 07:25 02/14/18 13:17 Troponin I 0.314 ng/ml 0.352 ng/ml 0.367 ng/ml White Blood Count 13.92 K/uL Red Blood Count 3.84 M/uL Hemoglobin 10.6 g/dL Hematocrit 33.6 % Mean Corpuscular Volume 87.5 fL Mean Corpuscular Hemoglobin 27.6 pg Mean Corpuscular Hemoglobin Concent 31.5 g/dl RDW Standard Deviation 44.0 fL RDW Coefficient of Variation 13.8 % Platelet Count 211 K/uL Mean Platelet Volume 9.5 fL Sodium Level 130 mmol/L Potassium Level 4.1 mmol/L Chloride Level 96 mmol/L Carbon Dioxide Level 29 mmol/L Anion Gap 5.0 mmol/L Blood Urea Nitrogen 10 mg/dl Creatinine 0.71 mg/dl Est Creatinine Clear Calc Drug Dose 74.9 ml/min Estimated GFR () 111.9 Estimated GFR (Non- 96.6 BUN/Creatinine Ratio 13.3 Random Glucose 128 mg/dl Calcium Level 8.4 mg/dl Lipid Panel Test 02/06/18 05:30 Range/Units Triglycerides Level 157 H 0-150 mg/dl Cholesterol Level 166 0-200 mg/dl HDL Cholesterol 39 mg/dl Cholesterol/HDL Ratio 4.3 LDL Cholesterol, Calculated 96 mg/dl Medical Emergencies . Who to Call and When: Medical Emergencies: If at any time you feel your situation is an emergency, please call 911 immediately. . Non-Emergent Contact Non-Emergency issues call your: Primary Care Provider, Oncologist Call Non-Emergent contact if: temperature is above 101, your pain is not controlled, your pain is worsening, your pain is unusual for you, your pain is concerning you, you have any medication questions You have a return of black or bloody stools, if you are feeling lightheaded, or for any other concerns. . . "Provider Documentation" section prepared by Lauryn Plascencia. .
--- NOTE | 2018-02-14 18:28 | Discharge Summary ---
Discharge Summary Date of Service Feb 14, 2018. Discharge Summary Admission Date: Feb 13, 2018 at 18:53 Discharge Date: Feb 14, 2018 Discharge Disposition: Home Principal Diagnosis: GI bleed Problems/Secondary Diagnoses: Esophageal cancer-metastatic to the liver Normocytic anemia Leukocytosis Recent bilateral pulmonary emboli and lower extremity DVT Myocardial demand ischemia Anxiety disorder, NOS Hypothyroidism History of breast cancer History of thyroid cancer Immunizations: Have You Had Influenza Vaccine: N/A History of Tetanus Vaccine?: Yes History of Pneumococcal: No History of Hepatitis B Vaccine: No Procedures: Chest/abdomen x-ray Consultations: Gastroenterology Hematology/oncology Medication Reconciliation Changed Medications: Enoxaparin (Enoxaparin Sodium) 60 Mg/0.6 Ml Inj 90 MG SQ Q24H for 30 Days, 0 Refills (Changed from: 60 MG; Q12H; Removed Quantity; Refills: 2) to be given at 2:00 PM Continued Medications: Calcium Carbonate-Vitamin D (Calcium + D) 1 Tab Tab 1 TAB PO QPM Chlorpromazine HCl (Chlorpromazine HCl) 10 Mg Tab 10 MG PO Q8H PRN for hiccups, #30 TAB 0 Refills Cholecalciferol (Vitamin D) 1,000 Unit Tab 1 TAB PO QPM Citalopram Hydrobromide (Citalopram Hydrobromide) 20 Mg Tab 20 MG PO DAILY Cyanocobalamin (Vitamin B-12) 2,500 Mcg Sub 1 TAB PO QPM Dexamethasone (Dexamethasone) 4 Mg Tab 4 MG PO DIRECTED, #7 TAB 0 Refills 1 tab po x 1 on 02/10; then 1 tab po BID x 2 days; then 1 tab po daily x 2 days. Then stop; take w/ food. Fish Oil ([place]-3) 1 Ea Cap 1 CAP PO QPM, CAP Levothyroxine Sodium (Levothyroxine Sodium) 75 Mcg Tab 75 MCG PO DAILY Loperamide Hcl (Imodium) 2 Mg Cap 2 MG PO DAILY PRN for Diarrhea, CAP Ondansetron Odt (Zofran Odt) 8 Mg Soltab 8 MG SL Q6H PRN for Nausea, #20 TAB 0 Refills Oxycodone HCl (Oxycodone HCl) 5 Mg Tab 5 MG PO Q6H PRN for Pain, #30 TABS 0 Refills Pantoprazole (Protonix) 40 Mg Tab 40 MG PO BID, #60 TABS 5 Refills Polyethylene Glycol 3350 (Miralax) 1 Pow Pow 17 GM PO DAILY PRN for Constipation, #255 GM Probiotic Product (Probiotic) 1 Tab Tab 1 TAB PO DAILY Ranitidine (Zantac) 300 Mg Tab 300 MG PO HS, TAB Senna (Senokot) 8.6 Mg Tab 2 TAB PO DAILY, TAB Vitamin E (Vitamin E) 400 Unit Tab 1 TAB PO QPM Discharge Exam Patient feeling much improved. She is tolerating a regular diet. She has had no further melena since prior to admission. She denies any abdominal pain. No nausea. Her hemoglobin actually increased from yesterday. Telemetry with normal sinus rhythm and some sinus tachycardia. She denies any other problems. I discussed the case at length with oncology, as well as GI today. Review of Systems: Constitutional: + fatigue Eyes: No problem reported ENT: No problem reported Respiratory: No shortness of breath Cardiovascular: No chest pain, No edema, No problem reported (No lightheadedness) Abdomen: No pain, No nausea, No vomiting Musculoskeletal: No problem reported Genitourinary - Female: No problem reported Neurologic: No problem reported Psychiatric: No problem reported Endocrine: No problem reported Hematologic / Lymphatic: No problem reported Integumentary: No problem reported Physical Exam: General Appearance: WD/WN, no apparent distress Eyes: normal inspection, sclerae normal ENT: hearing grossly normal Neck: trachea midline Respiratory/Chest: lungs clear, normal breath sounds, no respiratory distress, no accessory muscle use Cardiovascular: regular rate, rhythm, no edema, no gallop, no murmur, normal peripheral pulses Abdomen / GI: normal bowel sounds, non tender, soft, no organomegaly, no pulsatile mass Extremities: normal inspection, no calf tenderness, normal capillary refill , no pedal edema Neurologic/Psychiatric: alert, normal mood/affect, oriented x 3 Skin: normal color, warm/dry, no rash Hospital Course This patient is a 52-year-old female with recently diagnosed metastatic esophageal cancer with metastases to the liver, history of breast and thyroid cancer, hypothyroidism, recent admission for bilateral PEs and DVT, with recent esophageal stent placement, who presents to the ER with melena and lightheadedness. She is also found to be mildly hyponatremic and with an elevated troponin. Her Lovenox was held, and she had serial hemoglobins which actually increased throughout her stay. She had no further melena. Her lightheadedness improved. GI saw her and did not feel she needed a repeat endoscopy at this time. Hematology/oncology saw her and we discussed lowering the dose of her Lovenox to 1.5 mg/KG every 24 hours-it was important for her to stay on anticoagulation given the recent bilateral pulmonary emboli-an IVC filter would not help this. As for her elevated troponin, serial troponins were performed and showed stable but mild elevation at 0.34. She had a very normal echocardiogram less than 2 weeks ago. She had no significant events on telemetry monitoring. She never had chest pain, and her ECGs were without ischemic changes. No further evaluation was needed and this is most likely secondary to myocardial demand ischemia. Her hyponatremia was most likely due to mild dehydration given her decreased p.o. intake with her esophageal cancer. This did improve with IV fluid hydration. She was encouraged to keep up p.o. intake as much as possible after discharge. She will follow-up with her PCP on Friday. She will follow-up with oncology to start her chemotherapy next . Of note, her TSH was elevated last admission and should be checked again in 4-6 weeks. She will continue on the same dose of levothyroxine as before-likely was not being absorbed due to poor p.o. intake previously. Total Time Spent: Greater than 30 minutes This includes examination of the patient, discharge planning, medication reconciliation, and communication with other providers. Discharge Instructions Please refer to the electronic Patient Visit Report (Discharge Instructions) for additional information. Follow-Up With PCP within 1 week With oncology within 1 week to start chemotherapy Additional Copies To Alex Storey MD; Sallie Ramos MD
== END 2018-02-14 19:01 | disposition home or self-care (01) | DRG 374 ==
LOC: C.EDB 15:38 → C.2T 18:53 → ENRESERV 19:26 → CANRESERV 19:26 → ENRESERV 20:03
PROVIDERS: ADMIT Family Medicine; ATTEND Family Medicine
DX: C15.9 Malignant neoplasm of esophagus, unspecified (principal); I21.A1 Myocardial infarction type 2; C78.7 Secondary malignant neoplasm of liver and intrahepatic bile duct; D64.9 Anemia, unspecified; D72.829 Elevated white blood cell count, unspecified; F41.9 Anxiety disorder, unspecified; Z85.3 Personal history of malignant neoplasm of breast; Z85.850 Personal history of malignant neoplasm of thyroid

== ENCOUNTER → 2018-02-18 | Outpatient (CLI) | payer BC ==
[~2018-02-18] MED LIST changes: +POLY335019 PO; -POLY335025 PO
[2018-02-18 16:11] LABS: BASO % 0.3 %; BASO ABS # 0.05 K/uL (0-0.2); EOS ABS # 0.72 K/uL (0-0.5); HEMATOCRIT 30.9 % (37-47); HEMOGLOBIN 9.9 g/dL (12.0-16.0); IG# 0.07 K/uL (0.00-0.02); LYMPH % 11.7 %; MEAN CELL VOLUME 86.8 fL (80-100); MEAN CORPUSCULAR HEMOGLOBIN 27.8 pg (25-34); MEAN PLATELET VOLUME 9.4 fL (7.4-10.4); MONO % 8.1 %; MONO ABS # 1.18 K/uL (0.11-0.59); NEUT % 74.4 %; NEUT ABS # 10.79 K/uL (1.4-6.5); PLATELET COUNT 182 K/uL (130-400); RED CELL DISTRIBUTION WIDTH SD 44.5 fL (36.4-46.3); WHITE BLOOD COUNT 14.51 K/uL (4.8-10.8)
[2018-02-18 16:35] LABS: ALBUMIN 2.9 gm/dl (3.4-5.0); ALKALINE PHOSPHATASE 392 U/L (45-117); ALT/SGPT 67 U/L (12-78); AST/SGOT 56 U/L (15-37); BLOOD UREA NITROGEN 13 mg/dl (7-18); CALCIUM 9.1 mg/dl (8.5-10.1); CARBON DIOXIDE 27 mmol/L (21-32); CREATININE 0.86 mg/dl (0.60-1.20); GLUCOSE 87 mg/dl (70-99); POTASSIUM 3.8 mmol/L (3.5-5.1); SODIUM 127 mmol/L (136-145); TOTAL PROTEIN 6.8 gm/dl (6.4-8.2)
== END | disposition home or self-care (01) ==
LOC: C.LABSPEC 16:01
PROVIDERS: ATTEND Internal Medicine Hematology & Oncology
DX: C15.5 Malignant neoplasm of lower third of esophagus (principal)

== ENCOUNTER → 2018-02-24 | Outpatient (CLI) | payer BC ==
[2018-02-24 09:39] LABS: BASO % 0.1 %; BASO ABS # 0.02 K/uL (0-0.2); EOS % 4.8 %; EOS ABS # 0.75 K/uL (0-0.5); HEMATOCRIT 28.1 % (37-47); HEMOGLOBIN 9.1 g/dL (12.0-16.0); IG# 0.05 K/uL (0.00-0.02); MEAN CELL VOLUME 85.9 fL (80-100); MEAN CORPUSCULAR HEMOGLOBIN 27.8 pg (25-34); MEAN CORPUSCULAR HGB CONC 32.4 g/dl (32-36); MEAN PLATELET VOLUME 10.3 fL (7.4-10.4); MONO ABS # 0.77 K/uL (0.11-0.59); NEUT % 80.8 %; NEUT ABS # 12.53 K/uL (1.4-6.5); PLATELET COUNT 147 K/uL (130-400); RED CELL DISTRIBUTION WIDTH CV 14.2 % (11.5-14.5); RED CELL DISTRIBUTION WIDTH SD 44.8 fL (36.4-46.3); WHITE BLOOD COUNT 15.52 K/uL (4.8-10.8)
[2018-02-24 10:02] LABS: ALBUMIN 2.9 gm/dl (3.4-5.0); ALKALINE PHOSPHATASE 450 U/L (45-117); ALT/SGPT 56 U/L (12-78); AST/SGOT 66 U/L (15-37); BLOOD UREA NITROGEN 10 mg/dl (7-18); CALCIUM 9.1 mg/dl (8.5-10.1); CARBON DIOXIDE 29 mmol/L (21-32); CREATININE 0.93 mg/dl (0.60-1.20); GLUCOSE 144 mg/dl (70-99); POTASSIUM 3.1 mmol/L (3.5-5.1); SODIUM 128 mmol/L (136-145); TOTAL PROTEIN 6.7 gm/dl (6.4-8.2)
== END | disposition home or self-care (01) ==
LOC: C.LABSPEC 09:27
PROVIDERS: ATTEND Internal Medicine Hematology & Oncology
DX: C15.5 Malignant neoplasm of lower third of esophagus (principal)

== ENCOUNTER → 2018-03-12 | Outpatient (CLI) | payer BC ==
--- NOTE | 2018-03-12 10:27 | DIAGNOSTIC IMAGING REPORT ---
ADDENDUM Upon further review of the case there is a comparison study from 01/29/2018. The thrombi within the right lower extremity has mildly worsened, now extending into the right femoral vein. Electronically signed by: Walter Sharp M.D. 03/12/2018 10:46 AM Dictated Date/Time: 03/12/2018 10:45 AM ORIGINAL REPORT BILATERAL LOWER EXTREMITY VENOUS DOPPLER HISTORY: Acute bilateral leg pain and swelling RT LEG PAIN, SWELLING *DOC WANTS BILATERAL COMPARISON STUDY: None available FINDINGS: RIGHT: Occlusive deep venous thrombosis is noted extending from the mid femoral vein through the distal posterior tibial vein. Nonocclusive thrombus is seen within the peroneal vein. LEFT: No deep venous thrombosis identified above the level the knee. Intermittent broken flow within the posterior tibial vein which appears compressible, possibly reflecting nonocclusive deep venous thrombosis. Occlusive thrombus involves the peroneal vein. IMPRESSION: 1. Extensive deep venous thrombosis throughout the right lower extremity as above. 2. Occlusive deep venous thrombosis of the left peroneal vein. Electronically signed by: Walter Sharp M.D. 03/12/2018 10:25 AM Dictated Date/Time: 03/12/2018 10:22 AM
== END | disposition home or self-care (01) ==
LOC: C.ULTR 09:25
PROVIDERS: ATTEND Internal Medicine Hematology & Oncology
DX: M79.604 Pain in right leg (principal); R60.0 Localized edema; I82.411 Acute embolism and thrombosis of right femoral vein; I82.441 Acute embolism and thrombosis of right tibial vein; I82.492 Acute embolism and thrombosis of other specified deep vein of left lower extremity